=== PATIENT | female | born 1945 | race Caucasian/White ===

== ENCOUNTER → 2019-03-16 | Outpatient (CLI) | payer OTHER, MEDICARE | LOC: SJCVC 11:00 | DX: I10 Essential (primary) hypertension (principal); E78.5 Hyperlipidemia, unspecified; E11.9 Type 2 diabetes mellitus without complications; Z79.4 Long term (current) use of insulin; Z82.49 Family history of ischemic heart disease and other diseases of the circulatory system; Z79.82 Long term (current) use of aspirin; Z79.899 Other long term (current) drug therapy ==

== ENCOUNTER → 2019-03-17 | Outpatient (CLI) | payer OTHER | LOC: CAT 10:48 | DX: Z13.6 Encounter for screening for cardiovascular disorders (principal); E78.00 Pure hypercholesterolemia, unspecified; I25.10 Atherosclerotic heart disease of native coronary artery without angina pectoris ==

== ENCOUNTER → 2019-03-29 | Outpatient (CLI) | payer OTHER, MEDICARE | LOC: SJCVCIMAG 08:18 | DX: R07.9 Chest pain, unspecified (principal); R07.89 Other chest pain; I10 Essential (primary) hypertension ==

== ENCOUNTER 2019-06-03 13:09 | Inpatient (IN) | payer OTHER, MEDICARE ==
[~2019-06-03] VITALS: Ht 160 cm; Wt 92.4 kg
--- NOTE | ~2019-06-03 | D ---
[facility] [place] [address] DISCHARGE SUMMARY Name: MOHAMUD DE LA TORRE Room #: 213-P ADM IN M.R.#: [id number] Admission: 06/03/19 Attend Phys: Jesus Shen MD, Discharge: Date of : 47 Report #: [id number] THIS REPORT FOR: cc: Pepe Pope MD, Amir R. MD ~ THIS REPORT FOR: //name// CC: Pepe Shen [facility]SE: The patient is a 73-year-old female who presented to our office with some dyspnea, shortness of breath and generalized weakness. She had had a history of a recent hospitalization at [facility], found to have a GI bleed and a duodenal ulcer that was cauterized. Hemoglobin had been running around 8, but she was severely iron deficient and having difficulty with the oral iron. Also, echo in the office showed hyperdynamic function, but consistent with some diastolic dysfunction with LV relaxation issues and some pulmonary pressures in the 50-55 range consistent with some volume overload. Her hemoglobin apparently had gotten as low as 4.1. She was admitted for this diastolic dysfunction heart failure and repletion of her iron stores due to the severe iron deficiency. Also, significantly anemic, hemoglobin was 8. She was aggressively diuresed with IV Lasix. We are pending a repeat chest x-ray, but there was a poor inspiration on the first x-ray with some question of some cephalization. She has underlying hypertension, diabetes, coronary artery calcium score that was elevated, fatty liver, DJD, hypothyroidism. Creatinine is 1.4 this morning, stable, and hemoglobin is 8.0. We are waiting for pending x-ray, but she is improved. She is off oxygen currently, up and ambulating. I expect discharge here later today. DISCHARGE MEDICATIONS: CoQ10, insulin, Synthroid, rosuvastatin. We are holding on the MONTSERRAT inhibitors. Rosuvastatin we will continue and Toprol 25 mg. Demadex 10 mg. She may not really need much in the way of oral iron as she has some difficulty with it after 2 rounds of IV iron replacement. The occult stools were negative here. DISCHARGE DIAGNOSES: 1. Diastolic heart failure. 2. Tachycardia, secondary to anemia and volume overload. 3. Recent duodenal ulcer with cauterization. 4. Anemia. Hemoglobin at 8.0. Severely iron deficient. 5. Degenerative joint disease. RECOMMENDATIONS AND PLAN: As stated above with those medications on discharge. Follow up 2 weeks for this exacerbation of diastolic heart failure. We will [address] [address] DISCHARGE SUMMARY Name: MOHAMUD DE LA TORRE Room #: 213-VA [facility] IN M.R.#: [id number] Admission: 06/03/19 Attend Phys: Jesus Shen MD, Discharge: Date of : 47 Report #: [id number] check hemoglobin. We will check a CBC and iron studies at that setting. She does have a telemedicine follow up with her GI physician, Dr. Villalpando. Would obviously continue on her PPI, which is Protonix b.i.d. Thank you for asking me to assist in the care of this patient. By: [id number] /nt
[2019-06-03 15:15] VITALS: BP 144/70
[2019-06-03 16:08] LABS: HEMATOCRIT 25.5 % (37.0-47.0); HEMOGLOBIN 8.7 gm/dL (12.0-15.0); MCH 29.4 pg (26.0-34.0); MCV 86.6 fL (80.0-100.0); RBC 2.94 mil/uL (4.20-5.00); RDW 15.9 % (10.5-14.5); WBC 5.4 thou/uL (4.0-11.0)
[2019-06-03 16:15] LABS: % SATURATION 26 % (20-39); IRON 85 ug/dL (50-170); TIBC 329 ug/dL (250-450)
[2019-06-03 16:18] LABS: ALBUMIN 2.6 g/dL (3.4-5.0); CALCIUM 8.2 mg/dL (8.5-10.1); CREATININE 1.4 mg/dL (0.6-1.0); TOTAL BILIRUBIN 0.7 mg/dL (<0.1-1.0); TOTAL PROTEIN 6.9 g/dL (6.4-8.2)
[2019-06-03 16:31] LABS: TSH 8.814 uIU/mL (0.358-3.740)
[2019-06-03 16:33] LABS: PLATELET COUNT 226 thou/uL (150-400); PLATELET ESTIMATE NORMAL
[2019-06-03] MEDS ORDERED: ROSUVASTATIN CA40 MG PO (19:49)
[2019-06-03] MEDS ORDERED: HYDROCHLOROTHIA25 M2 PO (19:54)
[2019-06-03] MEDS ORDERED: PROTONIX40 M2 PO (19:55)
[2019-06-03 19:56] VITALS: BP 145/66
[2019-06-03] MEDS ORDERED: VITAMIN C500 M1 PO (20:00)
[2019-06-03] MEDS ORDERED: COQ-10100 MG PO (20:09)
[2019-06-03] MEDS ORDERED: SUPER THERAVIT1 EACH PO (20:10)
[2019-06-03] MEDS ORDERED: LEVOXYL88 MCG PO (20:12)
[2019-06-03] MEDS ORDERED: LANTUS SUBQ (20:18)
[2019-06-03] MEDS ORDERED: CHOLECALCIFEROL1 GM PO (20:25)
[2019-06-03 23:50] VITALS: BP 110/54
[2019-06-04] MEDS ORDERED: TRESIBA FL100 UNIT/1 SUBQ (03:23)
[2019-06-04] MEDS ORDERED: PRESERVISION A1 EACH PO (03:28)
[2019-06-04 03:30] VITALS: BP 119/60
[2019-06-04] MEDS ORDERED: NOVOLOG FL100 UNIT/M SUBQ (03:32)
[2019-06-04] MEDS ORDERED: IRON18 M1 PO (03:36)
[2019-06-04] MEDS ORDERED: IRON325 M1 PO (03:45)
[2019-06-04 07:48] VITALS: BP 113/56
[2019-06-04 08:26] LABS: HEMATOCRIT 22.9 % (37.0-47.0); HEMOGLOBIN 7.8 gm/dL (12.0-15.0); MCHC 33.8 g/dL (28.0-37.0); MCV 85.8 fL (80.0-100.0); RBC 2.67 mil/uL (4.20-5.00); RDW 15.7 % (10.5-14.5); WBC 4.7 thou/uL (4.0-11.0)
[2019-06-04 08:38] LABS: CALCIUM 8.6 mg/dL (8.5-10.1); CREATININE 1.4 mg/dL (0.6-1.0); MAGNESIUM 1.5 mg/dL (1.8-2.4)
--- NOTE | 2019-06-04 08:42 | EKG ---
[facility] [place] [address] ELECTROCARDIOGRAM REPORT Name: MOHAMUD DE LA TORRE Room #: 213-P ADM IN M.R.#: [id number] Admission: 06/03/19 Attend Phys: Jesus Shen MD, Discharge: Date of : 47 Report #: [id number] THIS REPORT FOR: cc: Pepe Pope MD, Amir R. MD Couchonnal, Luis F. 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
[2019-06-04 08:51] LABS: POTASSIUM 2.6 mmol/L (3.5-5.1)
[2019-06-04 11:06] VITALS: BP 106/63
[2019-06-04 16:26] VITALS: BP 116/64
[2019-06-04 20:03] VITALS: BP 109/56
[2019-06-04 20:09] LABS: MAGNESIUM 1.5 mg/dL (1.8-2.4)
[2019-06-04 20:15] LABS: POTASSIUM 2.7 mmol/L (3.5-5.1)
[2019-06-05 00:26] VITALS: BP 109/56
[2019-06-05 04:15] VITALS: BP 99/60
[2019-06-05 04:30] LABS: HEMATOCRIT 24.2 % (37.0-47.0); MCH 28.6 pg (26.0-34.0); MCHC 33.1 g/dL (28.0-37.0); MCV 86.7 fL (80.0-100.0); RBC 2.79 mil/uL (4.20-5.00); RDW 16.3 % (10.5-14.5); WBC 5.5 thou/uL (4.0-11.0)
[2019-06-05 04:33] LABS: CREATININE 1.4 mg/dL (0.6-1.0); POTASSIUM 3.1 mmol/L (3.5-5.1)
[2019-06-05 07:15] VITALS: BP 101/61
[2019-06-05] MEDS ORDERED: DEMADEX20 MG PO (08:51)
[2019-06-05] MEDS ORDERED: METOPROLOL SUCC25 M1 PO (08:51)
[2019-06-05 11:50] VITALS: BP 98/60
[2019-06-05 13:59] VITALS: BP 98/60
[2019-06-05 15:49] VITALS: BP 98/60
== END 2019-06-05 14:30 | disposition home or self-care (01) | DRG 291 ==
LOC: SJCVC 13:09 → SJCVCIMAG 13:09 → 2N 15:18
PROVIDERS: Nurse Practitioner; Nurse Practitioner Adult Health; ADMIT Internal Medicine Cardiovascular Disease
DX: I11.0 Hypertensive heart disease with heart failure (principal); E43 Unspecified severe protein-calorie malnutrition; I50.33 Acute on chronic diastolic (congestive) heart failure; D64.9 Anemia, unspecified; M19.90 Unspecified osteoarthritis, unspecified site; I25.10 Atherosclerotic heart disease of native coronary artery without angina pectoris; E78.5 Hyperlipidemia, unspecified; E11.9 Type 2 diabetes mellitus without complications; K76.0 Fatty (change of) liver, not elsewhere classified; E03.9 Hypothyroidism, unspecified; E83.42 Hypomagnesemia; E87.6 Hypokalemia; Z79.899 Other long term (current) drug therapy
CPT/HCPCS: 10081

== ENCOUNTER → 2019-06-22 | Outpatient (CLI) | payer OTHER, MEDICARE ==
[~2019-06-22] MED LIST: CHOLECALCIFEROL1 GM PO; COQ-10100 MG PO; DEMADEX20 MG PO; HYDROCHLOROTHIA25 M2 PO; IRON18 M1 PO; IRON325 M1 PO; LANTUS SUBQ; LEVOXYL88 MCG PO; METOPROLOL SUCC25 M1 PO; NOVOLOG FL100 UNIT/M SUBQ; PRESERVISION A1 EACH PO; PROTONIX40 M2 PO; ROSUVASTATIN CA40 MG PO; SUPER THERAVIT1 EACH PO; TRESIBA FL100 UNIT/1 SUBQ; VITAMIN C500 M1 PO
== END ==
LOC: SJCVC 14:01
DX: I25.10 Atherosclerotic heart disease of native coronary artery without angina pectoris (principal); E78.5 Hyperlipidemia, unspecified; E11.9 Type 2 diabetes mellitus without complications; I11.0 Hypertensive heart disease with heart failure; I50.33 Acute on chronic diastolic (congestive) heart failure; D64.9 Anemia, unspecified; Z79.4 Long term (current) use of insulin; Z82.49 Family history of ischemic heart disease and other diseases of the circulatory system; Z88.0 Allergy status to penicillin

== ENCOUNTER → 2019-11-05 | Outpatient (CLI) | payer OTHER, MEDICARE | LOC: SJCVC 13:43 | PROVIDERS: ATTEND Internal Medicine Cardiovascular Disease | DX: R93.1 Abnormal findings on diagnostic imaging of heart and coronary circulation (principal); I11.0 Hypertensive heart disease with heart failure; I50.9 Heart failure, unspecified; E78.5 Hyperlipidemia, unspecified; E11.9 Type 2 diabetes mellitus without complications; Z79.4 Long term (current) use of insulin; Z79.899 Other long term (current) drug therapy; Z86.79 Personal history of other diseases of the circulatory system; Z87.19 Personal history of other diseases of the digestive system ==

== ENCOUNTER → 2020-07-05 | Outpatient (CLI) | payer OTHER, MEDICARE | LOC: SJCVCIMAG 11:31 | PROVIDERS: ATTEND Internal Medicine Cardiovascular Disease | DX: I35.1 Nonrheumatic aortic (valve) insufficiency (principal); I11.0 Hypertensive heart disease with heart failure; I50.9 Heart failure, unspecified; E11.9 Type 2 diabetes mellitus without complications; E78.5 Hyperlipidemia, unspecified ==